=== PATIENT | male | born 1995 | race Caucasian/White ===

== ENCOUNTER 2019-02-28 17:34 | Emergency (ER) | payer SELFPAY ==
[~2019-02-28] VITALS: Ht 185.4 cm; Wt 102.5 kg
[2019-02-28] MEDS ORDERED: ONDANSETRON PF 4 MG/2 ML VIAL. IV ONE (17:45)
[2019-02-28] MEDS ORDERED: PROPOFOL 10 MG/ML (20ML) VIAL. IV ONE (17:45)
[2019-02-28] MEDS ORDERED: IV NORMAL SALINE 1000ML BAG 1,000 ML IV ONE (17:45)
--- NOTE | 2019-02-28 18:10 | PHYS DOC ---
Adult General Chief Complaint Chief Complaint: ELBOW PROBLEM HPI HPI Patient is a 23 year old male who presents with was at a wrestling match when he started to fall and tried to catch himself with the left arm. Patient now has left elbow deformity and pain and also posterior left shoulder pain. There is deformity to the left elbow and patient cannot extend the arm at the elbow. Patient has some range of motion to the shoulder but it is painful. Patient rates his sharp pain a 7 out of 10. Patient was brought in by EMS who gave him 200 mcg fentanyl. (LILIAM FERNANDEZ APRN) Review of Systems Review of Systems Constitutional: Denies fever or chills [] Eyes: Denies change in visual acuity, redness, or eye pain [] Musculoskeletal: Denies back pain or +left elbow and shoulder joint pain [] Integument: Denies rash or skin lesions [] Neurologic: Denies headache, focal weakness or sensory changes [] All other systems were reviewed and found to be within normal limits, except as documented in this note. (LILIAM FERNANDEZ APRN) Current Medications Current Medications Current Medications Medications (Trade) Dose Ordered Sig/Praneeth Start Time Stop Time Status Last Admin Dose Admin Ondansetron HCl (Zofran) 8 mg 1X ONCE 02/28/19 17:45 02/28/19 17:46 UNV Propofol (Diprivan) 200 mg 1X ONCE 02/28/19 17:45 02/28/19 17:46 UNV Sodium Chloride 1,000 ml @ 1,000 mls/hr 1X ONCE 02/28/19 17:45 02/28/19 18:44 UNV (JASKARAN AMY DO) Physical Exam Physical Exam Constitutional: Well developed, well nourished, no acute distress, non-toxic appearance. [] HENT: Normocephalic, atraumatic, bilateral external ears normal, oropharynx moist, no oral exudates, nose normal. [] Eyes: PERRLA, EOMI, conjunctiva normal, no discharge. [] Neck: Normal range of motion, no tenderness, supple, no stridor. [] Cardiovascular:Heart rate regular rhythm, no murmur [] Lungs & Thorax: Bilateral breath sounds clear to auscultation [] Abdomen: Bowel sounds normal, soft, no tenderness, no masses, no pulsatile masses. [] Skin: Warm, dry, no erythema, no rash. [] Back: No tenderness, no CVA tenderness. [] Extremities: Elbow tenderness, no cyanosis, no clubbing, elbow ROM not intact, 2+ left elbow edema. [] Neurologic: Alert and oriented X 3, normal motor function, normal sensory function, no focal deficits noted. [] Psychologic: Affect normal, judgement normal, mood normal. [] (LILIAM FERNANDEZ APRN) EKG EKG [] (LILIAM FERNANDEZ APRN) Radiology/Procedures Radiology/Procedures [] (LILIAM FERNANDEZ APRN) Radiology/Procedures Indication: Left elbow dislocation. Consent: I have discussed with the patient and/or the patient education courses sales representative the indication, alternatives, and the possible risks and /or complications of the planned procedure and the anesthesia methods. The patient and/or patient education courses sales representative appear to understand and agree to proceed. Pre-Sedation Documentation and Exam: Within normal limit, see H AND P Airway Assessment: normal. Prior History of Anesthesia Complications: none. ASA Classification: 1 Sedation/ Anesthesia Plan: PROPOFOL IV Medications Used: see nursing notes. Monitoring and Safety: The patient was placed on a cardiac catheterization technologist and vital signs, pulse oximetry and level of consciousness were continuously evaluated throughout the procedure. The patient was closely monitored until recovery from the medications was complete and the patient had returned to baseline status. Respiratory therapy was on standby at all times during the procedure. (The following sections must be completed) Post-Sedation Vital Signs: [EDM.VS] Post-Sedation Exam: NO FOCAL NEUROVASCULAR DEFICIT. Complications: none. (JASKARAN MAY DO) Impressions: [facility] [address] [place] [address] IMAGING REPORT Signed PATIENT: YANDEL RENO ACCOUNT: [id number] : 1995 LOCATION: ER AGE: 23 SEX: M EXAM STATUS: PRE ER ORD. PHYSICIAN: JASKARAN MAY DO REASON: Trauma, left elbow injured PROCEDURE: ELBOW LEFT 3V ELBOW LEFT 3V DATE: 02/28/2019 5:41 PM INDICATION: Elbow trauma COMPARISON: None. FINDINGS: Bones: There is no evidence of acute fracture. Joints: Elbow joint dislocation, with anterior displacement of the distal humerus relative to the radial head and trochlear notch. IMPRESSION: Elbow joint dislocation. No definite fracture line is identified. Electronically signed by: Caroline Rodríguez MD (02/28/2019 6:18 PM) [facility] DICTATED and SIGNED BY: CAROLINE RODRÍGUEZ MD DATE: 02/28/19 446 [facility] [address] [place] [address] IMAGING REPORT Signed PATIENT: YANDEL RENO ACCOUNT: [id number] : 1995 LOCATION: ER AGE: 23 SEX: M EXAM STATUS: REG ER ORD. PHYSICIAN: LILIAM FERNANDEZ APRN REASON: post reduction PROCEDURE: ELBOW LEFT 2V ELBOW LEFT 2V DATE: 02/28/2019 6:02 PM INDICATION: Dislocation, status post reduction COMPARISON: Radiograph done earlier today. FINDINGS: Bones: There is no definite acute fracture. Joints: Interval reduction of the previously seen elbow joint dislocation. Elbow joint is congruent. There is no joint effusion. Miscellaneous: None. IMPRESSION: Interval reduction of the previously seen elbow joint dislocation, which is now congruent. No definite acute fracture. Electronically signed by: Caroline Rodríguez MD (02/28/2019 7:14 PM) [facility] DICTATED and SIGNED BY: CAROLINE RODRÍGUEZ MD DATE: 02/28/191913 (LILIAM FERNANDEZ APRN) Course & Med Decision Making Course & Med Decision Making Patient is a 23 year old male who presents with was at a wrestling match when he started to fall and tried to catch himself with the left arm. Patient now has left elbow deformity and pain and also posterior left shoulder pain. There is deformity to the left elbow and patient cannot extend the arm at the elbow. Patient has some range of motion to the shoulder but it is painful. Patient rates his sharp pain a 7 out of 10. Patient was brought in by EMS who gave him 200 mcg fentanyl. Alert and oriented. Speaks in full clear sentences. Denies hitting head, syncope, numbness or tingling, pain, shortness of air, rib pain, abdominal pain, vomiting, nausea. Skin pink warm and dry. The affected extremity has skin pink warm and dry, cap refill less than 3 seconds and full sensations. 2+ edema at left elbow. No edema or tenderness with palpation to the left shoulder. Tenderness to palpation to be left elbow at all sites. Radial pulses strong and present. No pain with palpation to the humerus or wrist or forearm. 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 Elbow x-ray shows Elbow joint dislocation. No definite fracture line is identified. Shoulder x-ray shows no acute findings. Dr. May notified of this patient he is to relocate elbow. Patient under procedural sedation per Dr. May. Dr. May did procedural sedation and relocated the left elbow. Arm sling placed. Post reduction xray shows Interval reduction of the previously seen elbow joint dislocation, which is now congruent. No definite acute fracture.Dr. May states he talked to and patient to call tomorrow at the office and Dr. Rubio states he will see him Tuesday. Patient is stable and has return to baseline mental status. (LILIAM FERNANDEZ APRN) Dragon Disclaimer Dragon Disclaimer This electronic medical record was generated, in whole or in part, using a voice recognition dictation system. (LILIAM FERNANDEZ APRN) Splinting [PATIENT/GUARDIAN/FAMILY:"Patient"] informed of findings. [findings; splinting em:] applied by []. The splint is checked by [], with [Desc; good/appropriate/adequate/loose:"appropriate"] stabilization of the injury. Distal capillary refill {pe heart capillary fill: "normal"] and distal neurologic function [Neuro:"intact"] (LILIAM FERNANDEZ APRN) Splinting [PATIENT/GUARDIAN/FAMILY:"Patient"] informed of findings OF LEFT ELBOW DISLOCATION. The dislocated joint was reduced by this physician by manipulation, a posterior long arm splint was applied by this physician, orthoglass material.. The splint is checked by this physician, with appropriate stabilization of the injury. Distal capillary refill {pe heart capillary fill: "normal"] and distal neurologic function [Neuro:"intact"]. (JASKARAN MAY DO) Departure Departure Impression: Primary Impression: Elbow dislocation Disposition: 01 HOME, SELF-CARE Condition: STABLE Referrals: GLADYS RUIBO MD Patient Instructions: Elbow Dislocation, Sedation or General Anesthesia, Adult, Care After Additional Instructions: Do not drive or operate any machinery today. Go home and relax for the rest tonight. Drink plenty of fluids. Take pain medication with food in your stomach so you do not vomit. No sports until released from orthopedics. Call office in the morning to make a appointment for Tuesday. Scripts Ibuprofen (IBUPROFEN) 600 Mg Tablet 600 MG PO PRN Q6HRS PRN for INFLAMMATION, #20 TAB Prov: LILIAM FERNANDEZ APR02/28/19 Orphenadrine Citrate (ORPHENADRINE CITRATE) 100 Mg Tablet.er 1 TAB PO BID, #20 TAB 1 Refill Prov: LILIAM FERNANDEZ 02/28/19 Hydrocodone/Apap 5-325 (NORCO 5-325 TABLET) 1 Each Tablet 1 TAB PO PRN Q6HRS PRN for PAIN, #10 TAB 0 Refills Prov: LILIAM FERNANDEZ APR02/28/19 Problem Qualifiers Primary Impression: Elbow dislocation Encounter type: initial encounter Laterality: left Qualified Codes: S53.105A - Unspecified dislocation of left ulnohumeral joint, initial encounter LILIAM FERNANDEZ APRFeb 28, 2019 18:10 JASKARAN MAY DO Feb 28, 2019 18:26
--- NOTE | 2019-02-28 18:18 | RAD ---
SHOULDER 2+V LEFT DATE: 02/28/2019 5:47 PM INDICATION: Shoulder trauma COMPARISON: None. FINDINGS: Bones: There is no evidence of acute fracture or dislocation. Joints: Acromioclavicular and glenohumeral joints are congruent. The acromiohumeral distance is not narrowed. Miscellaneous: No abnormal soft tissue calcifications in the shoulder. IMPRESSION: No evidence of acute fracture. Electronically signed by: Gustavo Rodríguez MD (02/28/2019 6:16 PM) [facility]
--- NOTE | 2019-02-28 18:21 | RAD ---
ELBOW LEFT 3V DATE: 02/28/2019 5:41 PM INDICATION: Elbow trauma COMPARISON: None. FINDINGS: Bones: There is no evidence of acute fracture. Joints: Elbow joint dislocation, with anterior displacement of the distal humerus relative to the radial head and trochlear notch. IMPRESSION: Elbow joint dislocation. No definite fracture line is identified. Electronically signed by: Gustavo Rodríguez MD (02/28/2019 6:18 PM) [facility]
[2019-02-28] MEDS ORDERED: ORPH100T PO (18:39)
[2019-02-28] MEDS ORDERED: IBUP-1007 PO (18:39)
[2019-02-28] MEDS ORDERED: HYDR-3164 PO (18:39)
[2019-02-28 18:54] VITALS: BP 161/90
[2019-02-28 19:00] VITALS: BP 164/83
[2019-02-28] MEDS ORDERED: fentaNYL PF VIAL 100 MCG/2 ML VIAL IV ONE (19:00)
--- NOTE | 2019-02-28 19:17 | RAD ---
ELBOW LEFT 2V DATE: 02/28/2019 6:02 PM INDICATION: Dislocation, status post reduction COMPARISON: Radiograph done earlier today. FINDINGS: Bones: There is no definite acute fracture. Joints: Interval reduction of the previously seen elbow joint dislocation. Elbow joint is congruent. There is no joint effusion. Miscellaneous: None. IMPRESSION: Interval reduction of the previously seen elbow joint dislocation, which is now congruent. No definite acute fracture. Electronically signed by: Gustavo Rodríguez MD (02/28/2019 7:14 PM) [facility]
--- NOTE | 2019-03-02 06:19 | PHYS DOC ---
MODERATE SEDATION ASSESSMENT RISKS/ALTERNATIVES Risks/Alternatives Risks and alternatives of this type of sedation and procedure discussed with: RISK/ALTERNATIVES: Patient H & P ON CHART H & P H & P on chart and reviewed for co-morbid conditions and appropriate labs. H&P ON CHART: Yes STATUS PREG STATUS ASSESSED: N/A MEDS/ALLERGIES REVIEWED Meds/Allergies Reviewed Medications and Allergies including time and route of recently administered narcotics and sedatives. MEDS/ALLERGIES REVIEWED: Yes ASA RATING ASA RATING: I AIRWAY ASSESSMENT Airway Assessment Airway patency, oral function limitations, presence of caps, crowns, dentures, partials, and ability to extend neck assessed. AIRWAY ASSESSMENT: Yes MALLAMPATI SCORE MALLAMPATI SCORE: I PRE-SEDATION ASSESSMENT PRE-SEDATION ASSESSMENT: Yes JASKARAN MAY DO Mar 02, 2019 06:19
== END 2019-02-28 19:42 | disposition home or self-care (01) ==
LOC: ER 17:34
DX: M25.512 Pain in left shoulder (principal); S53.105A Unspecified dislocation of left ulnohumeral joint, initial encounter; W18.39XA Other fall on same level, initial encounter; Y93.89 Activity, other specified; Y92.89 Other specified places as the place of occurrence of the external cause; Y99.8 Other external cause status
CPT/HCPCS: 24600; 73030; 73070; 73080; 96374; 96375; 99285; J2405; J2704; J3010; J7030

== ENCOUNTER → 2019-03-26 | Outpatient (CLI) | payer OTHER ==
[2019-02-28 19:00] VITALS: BP 164/83
[~2019-03-26] MED LIST: HYDR-3164 PO; IBUP-1007 PO; ORPH100T PO
--- NOTE | 2019-03-26 15:33 | KCIC ---
MR of the left elbow HISTORY: Left elbow dislocation 2 weeks ago. Medial and lateral pain. TECHNIQUE: Routine multiplanar sequences are obtained. FINDINGS: Biceps and brachialis tendon insertions are intact. Triceps tendon intact. Complete rupture of the common flexor tendon from the humeral attachment. Rupture of the proximal ulnar collateral ligament from the humerus with mild distal displacement of fibers which are thickened. Thickening of the common extensor tendon attachment with partial tearing. Partial tearing of the proximal radial collateral ligament and lateral ulnar collateral ligament. Subchondral marrow edema signal at the posterior capitellum and distal humerus, anterior radial head, posterior humeral trochlea, and tip of the olecranon process, compatible with posttraumatic marrow contusions. No evidence of a displaced fracture. Moderate joint effusion with fluid dissecting from the joint into the proximal anterior soft tissues. This may indicate an anterior capsular tear at the elbow. This extra-articular fluid collection measures about 5 cm long axis. This is in the region of the brachialis muscle and could also indicate a partial brachialis muscle tear. Ulnar nerve unremarkable. Heterogeneous and feathery edema signal within the flexor-pronator muscles compatible with low-grade strain. IMPRESSION: 1. Complete rupture of the proximal common flexor tendon and ulnar collateral ligament. 2. Partial tearing of the common extensor tendon attachment and lateral collateral ligament complex. 3. Moderate joint effusion. Extracapsular fluid dissects into the soft tissues anterior to the distal humerus, in the region of the brachialis muscle. This could indicate hematoma within a partial intramuscular brachialis tear, or dissection of fluid from the joint due to the anterior capsular tear. Electronically signed by: Trevin Abreu MD (03/26/2019 3:30 PM) [facility]
== END | disposition home or self-care (01) ==
LOC: KCIC MRI 13:21
PROVIDERS: ATTEND Orthopaedic Surgery
DX: S63.592A Other specified sprain of left wrist, initial encounter (principal); S56.212A Strain of other flexor muscle, fascia and tendon at forearm level, left arm, initial encounter; S63.31 Traumatic rupture of collateral ligament of wrist; S56.512A Strain of other extensor muscle, fascia and tendon at forearm level, left arm, initial encounter; X58.XXXA Exposure to other specified factors, initial encounter; Y93.89 Activity, other specified; Y92.89 Other specified places as the place of occurrence of the external cause; Y99.8 Other external cause status
CPT/HCPCS: 73221